=== PATIENT | male | born 1960 | race Caucasian/White ===

== ENCOUNTER 2023-11-06 06:50 | Day surgery (SDC) | payer OTHER ==
[2023-11-01 16:23] VITALS: BMI 24.5
[2023-11-06] MEDS ORDERED: LIDOCAINE HCL 2% (20ML MULTI-DOSE VIAL) ONE (07:07)
[2023-11-06] MEDS ORDERED: PROPOFOL 20 ML ONE (08:00)
[2023-11-06] MEDS ORDERED: MIDAZOLAM HCL 2 MG/2 ML SINGLE DOSE VIAL ONE (08:00)
[2023-11-06 09:21] VITALS: RESP 18; TEMP 97
[2023-11-06 09:48] VITALS: BP 132/90; PULSE 54
== END 2023-11-06 09:43 | disposition home or self-care (01) ==
LOC: FASU 06:50
PROVIDERS: ATTEND Orthopaedic Surgery Hand Surgery
PROC: 01N50ZZ Release Median Nerve, Open Approach (ICD-10-PCS; principal; 2023-11-06 08:45)
PROC: 0LN70ZZ Release Right Hand Tendon, Open Approach (ICD-10-PCS; 2023-11-06 08:45)
DX: G56.01 Carpal tunnel syndrome, right upper limb (principal); M65.341 Trigger finger, right ring finger